=== PATIENT | male | born 1985 | race Caucasian/White ===

== ENCOUNTER 2017-05-16 16:21 | Inpatient (IN) | payer OTHER ==
[~2017-05-16] VITALS: Ht 180.3 cm; Wt 54.0 kg
[2017-05-16] MEDS ORDERED: ONDANSETRON 4 MG/2 ML VIAL IM PRN (21:45)
[2017-05-16] MEDS ORDERED: MIRALAX 17 GM POWD.PACK PO PRN (21:45)
[2017-05-16] MEDS ORDERED: diphenhydrAMINE 50 MG CAPSULE PO PRN (21:45)
[2017-05-16] MEDS ORDERED: THIAMINE HCL 200 MG/2 ML VIAL IM ONE (21:45)
[2017-05-16] MEDS ORDERED: LORAZEPAM 2 MG/1 ML VIAL IM PRN (21:45)
[2017-05-16] MEDS ORDERED: ACETAMINOPHEN 325 MG TABLET PO PRN (21:45)
[2017-05-16] MEDS ORDERED: LOPERAMIDE HCL 2 MG CAPSULE PO PRN ×2 (21:45)
[2017-05-16] MEDS ORDERED: ONDANSETRON ODT 4 MG TAB.RAPDIS SL PRN (21:45)
[2017-05-16] MEDS ORDERED: HYDROXYZINE PAMOATE 25 MG CAPSULE PO PRN (21:45)
[2017-05-16] MEDS ORDERED: DICYCLOMINE HCL 20 MG TABLET PO PRN (21:45)
[2017-05-16] MEDS ORDERED: MAG HYDROX/AL HYDROX/SIMETH 30 ML LIQUID UDC PO PRN (21:45)
[2017-05-16] MEDS ORDERED: LORAZEPAM 1 MG TABLET PO PRN ×2 (21:45)
[2017-05-16] MEDS ORDERED: IBUPROFEN 400 MG TABLET PO PRN (21:45)
[2017-05-16] MEDS ORDERED: CLONIDINE HCL 0.1 MG TABLET PO PRN (21:45)
[2017-05-16 22:00] VITALS: BP 110/71
--- NOTE | 2017-05-16 22:01 | NUR ---
ADMISSION NOTE: Patient is a 31 year old male admitted to [facility] on 05-16-17 for ETOH and BENZO detox as well as METHAMPHETAMINE, GHB, alkyl nitrites, and marijuana abuse/dependence. Patient has arrived on unit at 2201 ambulatory, alert and oriented x 4, and able to make needs known. Patient is 5'11, 119 lbs. he has NKA. He is a full code and on a regular diet. He denies seizure history. Medical history includes HIV diagnosed in 2007, currently taking Genvoya 1 tab daily. Last taken today. Patient also occasionally uses Flonase prn for seasonal allergies. Patient has past psych history of generalized anxiety and depression. Denies current psychiatrist or psychiatric medications. Denies SI or HI. Patient provided urine for toxicology. Positive for benzodiazepines, and amphetamines. SUBSTANCE ABUSE HISTORY: 1.Methamphetamine 1/2 gram daily in multiple doses. Patient last used approximately 5 hours prior to admission. Has been using at this rate for last 4 months. Route of use is both inhalation and injecting. First use age 17. 2. GHB. Using approximately 2 1/2 ml PO every 2 hours when using methamphetamine. Last used approximately 5 hours ago. 3. Xanax. Using approximately 3 grams weekly approximately 1/2 "bar" every 2 days (states helps with coming down from Meth). First used at age 23. Last used approxiamtely 2 days ago. 4. ETOH- Using approximately 3-5 times weekly. 32-64 ounces. Mixed drinks and beer. Last used approximately 2 days ago. 5 Marijuana 1 "bowl" approximately twice weekly last used approximately 3-4 days ago. Patient is a Non Smoker. Treatment history includes multiple attempts at [facility] before 2013. Inpatient 60 days at [facility] in [place] in 2013. Patient has a Primary care physician Dr Olvin Rojas at [facility]. Orientation to unit provided. Body search completed. No contraband found. Skin check completed. No noted skin breakdown. Upon admission vital signs BP 110/71, P 77, R 16, SPO2 98% on RA, T 97.9. CIWA 5. Safety measures in place, bed locked and in lowest position, side rails up x 2 for safety. Call light within reach. Will continue to monitor
[2017-05-16 22:14] LABS: BASOPHILS # (AUTO) 0.1 K/uL (0.0-8.0); BASOPHILS % (AUTO) 0.7 % (0.0-2.0); EOSINOPHILS # (AUTO) 0.1 K/uL (0.0-0.7); HEMATOCRIT 42.2 % (40-50); HEMOGLOBIN 13.7 G/DL (14.0-18.0); LYMPHOCYTES # (AUTO) 1.7 K/UL (0.8-4.8); LYMPHOCYTES % (AUTO) 21.2 % (20.5-51.5); MEAN CORPUSCULAR HEMOGLOBIN 30.6 UUG (27.0-31.0); MEAN CORPUSCULAR HGB CONC 33 g/dL (32.0-37.0); MEAN CORPUSCULAR VOLUME 94.4 FL (82.0-92.0); MONOCYTES % (AUTO) 12.5 % (0.0-11.0); NEUTROPHILS # (AUTO) 5.2 K/UL (1.8-8.9); NEUTROPHILS % (AUTO) 64.6 % (38.5-71.5); PLATELET COUNT (AUTO) 225 K/UL (150-450); RED BLOOD CELL COUNT(AUTO) 4.47 MIL/UL (4.7-6.1); WHITE BLOOD COUNT (AUTO) 8.1 K/UL (4.0-11.2)
[2017-05-16 22:24] LABS: ALANINE AMINOTRANSFERASE 25 U/L (16-63); ALKALINE PHOSPHATASE 83 U/L (50-136); ASPARTATE AMINOTRANSFERASE 21 U/L (15-37); BILIRUBIN,TOTAL 0.6 mg/dL (0.2-1.0); CARBON DIOXIDE 32 mmol/L (21-32); CHLORIDE 108 mmol/L (98-107); CREATININE 1.3 mg/dL (0.6-1.3); GLUCOSE 111 mg/dL (74-106); MAGNESIUM 2.4 mg/dL (1.8-2.4); POTASSIUM 3.9 mmol/L (3.5-5.1); TOTAL PROTEIN, SERUM 8.7 g/dL (6.4-8.2); UREA NITROGEN, BLOOD 10 mg/dL (7-18)
[2017-05-16 22:26] LABS: ETHANOL < 3 MG/DL (0-0)
[2017-05-16 22:28] LABS: *AMPHETAMINE, URINE POSITIVE (NEGATIVE); *BARBITURATE, URINE NEGATIVE (NEGATIVE); *CANNABINOID, URINE NEGATIVE (NEGATIVE); *COCCAINE, URINE NEGATIVE (NEGATIVE); *OPIATE, URINE NEGATIVE (NEGATIVE); *PHENCYCLIDINE SCREEN,URINE NEGATIVE (NEGATIVE)
[2017-05-16] MEDS ORDERED: LORAZEPAM 1 MG TABLET PO ONE (22:30)
[2017-05-16] MEDS ORDERED: QUETIAPINE FUMARATE 25 MG TABLET PO PRN (22:45)
--- NOTE | 2017-05-16 23:26 | NUR ---
ONE TIME DOSE ATIVAN One time dose of Ativan 2 mg PO ordered for anxiety/insomnia. Administered to patient at 2326. Effect pending.
[2017-05-16] MEDS ORDERED: THIAMINE HCL 200 MG/2 ML VIAL ONE (23:28)
[2017-05-16] MEDS ORDERED: LORAZEPAM 1 MG TABLET ONE (23:29)
--- NOTE | 2017-05-17 00:26 | NUR ---
Reassessment of patient Patient reassessed one hour after one time dosse of Ativan 2mg administered. PAtient resting comfortably in bed with eyes closed. Breathing even and unlabored.
[2017-05-17] MEDS ORDERED: ELVI1TAB3 PO (01:06)
[2017-05-17] MEDS ORDERED: FLUT9.9S NS (03:18)
[2017-05-17 04:00] VITALS: BP 104/68
--- NOTE | 2017-05-17 06:54 | NUR ---
END OF SHIFT Endorsement to AM nurse. Patient is a 31 year old male admitted to [facility] on 05-16-17 for ETOH, BENZO, METHAMPHETAMINE, GHB, alkyl nitrites, and marijuana. Patient has arrived on unit at 2201 ambulatory, alert and oriented x 4, and able to make needs known. Patient is 5'11, 119 lbs. he has NKA. He is a full code and on a regular diet. He denies seizure history. Medical history includes HIV diagnosed in 2007, currently taking Genvoya 1 tab daily. Last took today. Patient also occasionally uses Flonase prn for seasonal allergies. Patient has past psych history of generalized anxiety and depression. Denies current psychiatrist or psychiatric meds. Denies SI or HI. Patient provided urine for toxicology. Positive for benzodiazepines, and amphetamines. Patient is a Non Smoker. Treatment history includes multiple attempts at [facility] before 2013. Inpatient 60 days at [facility] in [place] in 2013. Patient has a Primary care physician Dr Olvin Rojas at [facility]. Orientation to unit provided. Body search completed. No contraband found. Skin check completed. No noted skin breakdown. Upon admission vital signs BP 110/71, P 77, R 16, SPO2 98% on RA, T 97.9. CIWA 5. HE received a one time Ativan dose of 2 mg PO at 2326. Vital signs at 0400 BP 104/68,P 82, R 16, SPO2 100% RA, T 97.9 . CIWA 2. Intake 890 Ml, output 1 void, slept 4 hours. Safety measures in place, bed locked and in lowest position, side rails up x 2 for safety. Call light within reach. Will continue to monitor
--- NOTE | 2017-05-17 07:23 | NUR ---
START OF SHIFT NOTE: Received report from night time nanny nurse. Patient is a 31 year old male admitted to [facility] on 05-16-17 for ETOH, BENZO , METHAMPHETAMINE, GHB, alkyl nitrites, and marijuana abuse/dependence. Pt currently on prn's only. Pt is alert and oriented X4. Color good, skin warm and dry. Respirations even and unlabored. Pt resting in bed. Safety precautions observed. Call light within reach. Will continue to monitor.
[2017-05-17 08:06] VITALS: BP 106/72
[2017-05-17] MEDS ORDERED: TUBERCULIN,PURIF.PROT.DERIV. 5 TU/0.1 ML TEST ID ONE (09:00)
[2017-05-17] MEDS ORDERED: GABAPENTIN 300 MG CAPSULE PO SCH (09:00)
[2017-05-17] MEDS: THIAMINE HCL 100 MG TABLET PO SCH (09:11)
[2017-05-17] MEDS: FOLIC ACID 1 MG TABLET PO SCH (09:12)
[2017-05-17] MEDS: MULTIVITAMINS,THERAPEUTIC TABLET PO SCH (09:12)
--- NOTE | 2017-05-17 09:22 | NUR ---
VSS CIWA 6 c/o upper extremity tremors and anxiety. Pt states "very tired." TB test administered LFA
[2017-05-17] MEDS ORDERED: FLONASE NASAL SPRAY NS PRN (11:30)
[2017-05-17] MEDS ORDERED: LORAZEPAM 1 MG TABLET PO PRN ×2 (12:15)
--- NOTE | 2017-05-17 12:25 | NUR ---
Therapist prompted client to attend daily group therapy, and client stated that he would attend if he was feeling well.
[2017-05-17] MEDS: GENVOYA PO SCH (12:32)
[2017-05-17 12:44] VITALS: BP 100/63
[2017-05-17] MEDS: GABAPENTIN 300 MG CAPSULE PO SCH ×2 (13:56→20:41)
--- NOTE | 2017-05-17 16:27 | NUR ---
VSS CIWA 8 Ativan 1mg po prn administered
[2017-05-17 17:02] VITALS: BP 100/63
--- NOTE | 2017-05-17 17:09 | NUR ---
Pt feels much improved after Ativan prn. CIWA 5
--- NOTE | 2017-05-17 18:39 | NUR ---
END OF SHIFT NOTE: Report given to lieutenant shift supervisor nurse . Patient is a 31 year old male admitted to [facility] on 05-16-17 for ETOH, BENZO , METHAMPHETAMINE, GHB, alkyl nitrites, and marijuana abuse/dependence. Pt currently on prn's only. Pt is alert and oriented X4. Color good, skin warm and dry. Last CIWA 8 @ 1500. Ativan 1mg po prn administered @ 1630. Respirations even and unlabored. Vital signs have remained stable throughout shift. Pt resting in bed. Safety precautions observed. Call light within reach
--- NOTE | 2017-05-17 19:15 | NUR ---
START OF SHIFT Endorsement received from AM shift. Patient is a 31 year old male admitted to [facility] on 05-16-17 for ETOH, BENZO, METHAMPHETAMINE, GHB, alkyl nitrites, and marijuana. Patient is alert and oriented x 4, and able to make needs known. he has NKA. He is a full code and on a regular diet. He denies seizure history. Medical history includes HIV diagnosed in 2007, currently taking Genvoya 1 tab daily. Patient has past psych history of generalized anxiety and depression. Denies SI or HI. Patient is a Non Smoker. He is currently on an Ativan PRN for S/S of withdrawal. He received one dose on AM shift. His last CIWA 8. At change of shift patient is in bed with eyes closed. Arousable to name. PAtient denies current problems, feels tired. Ate 100 % of his dinner. Safety measures in place, bed locked and in lowest position, side rails up x 2 for safety. Call light within reach. Will continue to monitor
[2017-05-17 20:00] VITALS: BP 100/66
[2017-05-17] MEDS ORDERED: QUETIAPINE FUMARATE 25 MG TABLET PO PRN (21:00)
--- NOTE | 2017-05-18 | NUR ---
CIWA DEFERRED/VITAL SIGNS REFUSED Patient refused vital signs at 0000. Patient resting comfortably in bed. Eyes closed. Breathing even and unlabored. Respirations 16. CIWA deferred for sleep
--- NOTE | 2017-05-18 04:07 | NUR ---
CIWA DEFERRED/VITAL SIGNS REFUSED Patient refused vital signs at 0400. Patient resting comfortably in bed. Eyes closed. Breathing even and unlabored. Respirations 16. CIWA deferred for sleep
--- NOTE | 2017-05-18 06:45 | NUR ---
END OF SHIFT REPORT. Endorsement to AM nurse. Patient is a 31 year old male admitted on 05/16/17 for Alcohol and benzo detox. Patient also with abuse of Methamphetamines, GHB,and alkyl nitrites. Medical history includes: HIV, Generalized anxiety Disorder, and depression. History of one seizure noted in December 2016. Patient remains on Atvan PRN for withdrawal symptoms. Last CIWA 4. Patient did not receive any PRN medications on PM shift. Patient alert and oriented x 4, isolative in room, sleeping intermittently throughout shift with no complaints Patient brought to my attention small scab to inner right thigh. No open area , scab less than one centimeter in diameter. He denies SI or HI, waxes and wanes regarding decision to come into detox on a Holiday weekend, but continues to recognize the seriousness of addiction. Patient is receptive to education. Tolerating diet and fluids. Non smoiker. Intake 350 ML Output 1 VOID Slept a total of 10 hours. Safety measures in place, bed locked in lowest positions, 2 side rails up, call light within reach. Full code, on a regular diet, with NKA. Will continue to monitor.
--- NOTE | 2017-05-18 07:29 | NUR ---
START OF SHIFT NOTE: Received report from production shift supervisor nurse. Patient is a 31 year old male admitted to [facility] on 05-16-17 for ETOH, BENZO , METHAMPHETAMINE, GHB, alkyl nitrites, and marijuana abuse/dependence. Pt currently on prn's only. Pt is alert and oriented X4. Color good, skin warm and dry. Respirations even and unlabored. Pt resting in bed. Safety precautions observed. Call light within reach. Will continue to monitor.
[2017-05-18 08:31] VITALS: BP 108/62
[2017-05-18 09:08] LABS: *BASOS 1 % (.); *BASOS,ABSOLUTE 0.1 x10E3/uL (0.0-0.2); *COMMENTS Note: (.); *EOS 3 % (.); *EOS ABSOLUTE 0.2 x10E3/uL (0.0-0.4); *HCT 42.5 % (37.5-51.0); *HGB 13.5 g/dL (12.6-17.7); *LYMPHOCYTES 40 % (.); *LYMPHOCYTES ABSOLUTE 3.2 x10E3/uL (0.7-3.1); *MCHC 31.8 g/dL (31.5-35.7); *MCV 98 fL (79-97); *MONOCYTES 9 % (.); *MONOCYTES ABSOLUTE 0.7 x10E3/uL (0.1-0.9); *NEUTROPHILS 47 % (.); *NEUTROPHILS ABSOLUTE 3.8 x10E3/uL (1.4-7.0); *PLT 243 x10E3/uL (150-379); *RBC 4.35 x10E6/uL (4.14-5.80); *RDW 14.3 % (12.3-15.4)
[2017-05-18] MEDS: MULTIVITAMINS,THERAPEUTIC TABLET PO SCH (09:38)
[2017-05-18] MEDS: GENVOYA PO SCH (09:38)
[2017-05-18] MEDS: GABAPENTIN 300 MG CAPSULE PO SCH ×3 (09:38→20:43)
[2017-05-18] MEDS: FOLIC ACID 1 MG TABLET PO SCH (09:38)
[2017-05-18] MEDS: THIAMINE HCL 100 MG TABLET PO SCH (09:38)
[2017-05-18 11:07] LABS: HEPATITIS B SURFACE AG Negative (Negative)
[2017-05-18 12:22] VITALS: BP 109/72
[2017-05-18] MEDS ORDERED: IBUP-1953 PO (14:38)
[2017-05-18] MEDS ORDERED: GABA-534 PO (14:38)
[2017-05-18] MEDS ORDERED: HYDR-3895 PO (14:38)
[2017-05-18 17:26] VITALS: BP 109/72
--- NOTE | 2017-05-18 18:39 | NUR ---
END OF SHIFT NOTE: Report given to maintenance technician 2nd shift nurse . Patient is a 31 year old male admitted to [facility] on 05-16-17 for ETOH, BENZO , METHAMPHETAMINE, GHB, alkyl nitrites, and marijuana abuse/dependence. Pt currently on prn's only. No prn's administered. Pt is alert and oriented X4. Color good, skin warm and dry. Last CIWA 6 @ 1500. Respirations even and unlabored. Vital signs have remained stable throughout shift. Pt resting in bed. Safety precautions observed. Call light within reach.
--- NOTE | 2017-05-18 19:30 | NUR ---
START OF SHIFT Patient is a 31 year old male admitted for Etoh, Benzo , Methamphetamine, GHB, alkyl nitrites, and marijuana abuse/dependency. Pt currently on PRN medications only. No PRN meds given during day shift. Pt is alert and oriented X4, skin warm and dry. Last CIWA 6 @ 1500. Respirations even and unlabored. Vital signs have remained stable throughout day shift. All safety precautions observed per hospital policy, Call light within reach,will continue to monitor.
[2017-05-18 20:00] VITALS: BP 119/78
[2017-05-19] VITALS: BP 102/65
--- NOTE | 2017-05-19 04:00 | NUR ---
V/S REFUSED.CIWA DEFERRED PT IN DEEP SLEEP.HE HAD REQUESTED NOT TO BE WOKEN UP FOR 0400 V/S.CIWA DEFERRED DUE TO BEING ASLEEP.NO S/S OF DISTRESS NOTED.WILL CONTINUE TO MONITOR.
--- NOTE | 2017-05-19 06:42 | NUR ---
END OF SHIFT Patient is a 31 year old male admitted for Etoh, Benzo , Methamphetamine, GHB, alkyl nitrites, and marijuana abuse/dependency. Pt currently on PRN medications only. No PRN meds given last night. Pt slept 7.5 hrs,fuid intake was 1000 mls, voided x 1.Pt is scheduled to be discharged this morning. Pt is alert and oriented X4, skin warm and dry. Last CIWA was 1 @ midnight. Respirations even and unlabored. Vital signs have remained stable. All safety precautions observed per hospital policy, Call light within reach,will continue to monitor.
--- NOTE | 2017-05-19 07:05 | NUR ---
start of shift note: received pt from biological photographer nurse, pt is in stable condition at this time, no s/s of pain or discomfort. pt is [facility] for Meth/benzo/etoh withdrawal/dependence. pt's last ciwa 1,pt slept for 7 hrs. will assist pt in discharging and will continue to monitor pt for any changes.
[2017-05-19] MEDS: GENVOYA PO SCH (08:42)
[2017-05-19] MEDS: FOLIC ACID 1 MG TABLET PO SCH (08:42)
[2017-05-19] MEDS: THIAMINE HCL 100 MG TABLET PO SCH (08:42)
[2017-05-19] MEDS: GABAPENTIN 300 MG CAPSULE PO SCH (08:42)
[2017-05-19] MEDS: MULTIVITAMINS,THERAPEUTIC TABLET PO SCH (08:42)
--- NOTE | 2017-05-19 09:29 | NUR ---
discharge note: pt left the unit in stable condition no s/s of pain or discomfort or any withdrawal symptoms. pt teaching administered and pt verbalized understanding . pt's personal belongings were returned. [facility] via private catering truck driver/car.
== END 2017-05-19 09:29 | disposition other institution (70) | DRG 895 ==
LOC: SRC 20:42
PROVIDERS: ADMIT Internal Medicine; ATTEND Internal Medicine
PROC: HZ2ZZZZ Detoxification Services for Substance Abuse Treatment (ICD-10-PCS; principal; 2017-05-16)
PROC: HZ31ZZZ Individual Counseling for Substance Abuse Treatment, Behavioral (ICD-10-PCS; 2017-05-17)
DX: F10.230 Alcohol dependence with withdrawal, uncomplicated (principal); F13.239 Sedative, hypnotic or anxiolytic dependence with withdrawal, unspecified; F32.9 Major depressive disorder, single episode, unspecified; Y90.9 Presence of alcohol in blood, level not specified; F41.1 Generalized anxiety disorder; Z80.0 Family history of malignant neoplasm of digestive organs; Z81.8 Family history of other mental and behavioral disorders; F12.90 Cannabis use, unspecified, uncomplicated; D53.9 Nutritional anemia, unspecified; F14.10 Cocaine abuse, uncomplicated; R73.9 Hyperglycemia, unspecified
CPT/HCPCS: 36415; 80307; 80324; 80346; 83735; 85025; 86361; 86580; 86592; 86705; 86803; 87340; 87806; G0480; J3411

== ENCOUNTER 2018-01-12 10:09 | Inpatient (IN) | payer OTHER ==
[~2018-01-12] VITALS: Ht 180.3 cm; Wt 63.5 kg
[~2018-01-12 10:09] MED LIST: ELVI1TAB3 PO; FLUT9.9S NS; GABA-534 PO; HYDR-3895 PO; IBUP-1953 PO
[2018-01-12] MEDS ORDERED: ATOM100C PO (11:59)
[2018-01-12] MEDS ORDERED: ABAC1TAB15 PO (11:59)
[2018-01-12] MEDS ORDERED: ARIP5TAB10 PO (11:59)
[2018-01-12] MEDS ORDERED: BUPR-96 PO (11:59)
[2018-01-12] MEDS ORDERED: FLUO20CA36 PO (11:59)
[2018-01-12] MEDS ORDERED: CLOM50TA2 PO (11:59)
[2018-01-12 12:42] LABS: *AMPHETAMINE, URINE POSITIVE (NEGATIVE); *BARBITURATE, URINE NEGATIVE (NEGATIVE); *CANNABINOID, URINE NEGATIVE (NEGATIVE); *COCCAINE, URINE NEGATIVE (NEGATIVE); *OPIATE, URINE NEGATIVE (NEGATIVE); *PHENCYCLIDINE SCREEN,URINE NEGATIVE (NEGATIVE)
[2018-01-12] MEDS ORDERED: diphenhydrAMINE 50 MG CAPSULE PO PRN (12:45)
[2018-01-12] MEDS ORDERED: LOPERAMIDE HCL 2 MG CAPSULE PO PRN ×2 (12:45)
[2018-01-12] MEDS ORDERED: MAG HYDROX/AL HYDROX/SIMETH 30 ML LIQUID UDC PO PRN (12:45)
[2018-01-12] MEDS ORDERED: IBUPROFEN 400 MG TABLET PO PRN (12:45)
[2018-01-12] MEDS ORDERED: DICYCLOMINE HCL 20 MG TABLET PO PRN (12:45)
[2018-01-12] MEDS ORDERED: MAGNESIUM HYDROXIDE 30 ML LIQUID UDC PO PRN (12:45)
[2018-01-12] MEDS ORDERED: ACETAMINOPHEN 325 MG TABLET PO PRN (12:45)
[2018-01-12] MEDS ORDERED: FAMOTIDINE 20 MG TABLET PO PRN (12:45)
[2018-01-12] MEDS ORDERED: MIRALAX 17 GM POWD.PACK PO PRN (12:45)
[2018-01-12] MEDS ORDERED: CLONIDINE HCL 0.1 MG TABLET PO PRN (12:45)
[2018-01-12] MEDS ORDERED: HYDROXYZINE PAMOATE 25 MG CAPSULE PO PRN (12:45)
[2018-01-12] MEDS ORDERED: LORAZEPAM 2 MG/1 ML VIAL IM PRN (12:45)
[2018-01-12] MEDS ORDERED: LORAZEPAM 1 MG TABLET PO PRN ×2 (15:00)
[2018-01-12 16:00] VITALS: BP 105/62
[2018-01-12 20:00] VITALS: BP 96/58
[2018-01-12] MEDS ORDERED: ARIPIPRAZOLE 5 MG TABLET PO SCH (21:00)
[2018-01-12 21:59] LABS: BASOPHILS % (AUTO) 0.6 % (0.0-2.0); EOSINOPHILS # (AUTO) 0.2 K/uL (0.0-0.7); EOSINOPHILS % (AUTO) 1.9 % (0.0-7.0); HEMATOCRIT 41.4 % (36.7-47.1); LYMPHOCYTES # (AUTO) 2.1 K/uL (20.0-40.0); LYMPHOCYTES % (AUTO) 26.3 % (20.5-51.5); MEAN CORPUSCULAR HEMOGLOBIN 32.9 uug (23.8-33.4); MEAN CORPUSCULAR HGB CONC 34 g/dL (32.5-36.3); MEAN CORPUSCULAR VOLUME 97.2 fL (73.0-96.2); MONOCYTES # (AUTO) 1.1 K/uL (2.0-10.0); MONOCYTES % (AUTO) 13.9 % (0.0-11.0); NEUTROPHILS # (AUTO) 4.5 K/uL (1.8-8.9); NEUTROPHILS % (AUTO) 57.3 % (38.5-71.5); PLATELET COUNT (AUTO) 186 K/uL (152-348); RED BLOOD CELL COUNT(AUTO) 4.26 MIL/uL (4.06-5.63); WHITE BLOOD COUNT (AUTO) 7.9 K/uL (3.6-10.2)
[2018-01-12 22:22] LABS: ALANINE AMINOTRANSFERASE 25 U/L (16-63); ALKALINE PHOSPHATASE 69 U/L (50-136); ASPARTATE AMINOTRANSFERASE 16 U/L (15-37); BILIRUBIN,TOTAL 0.3 mg/dL (0.2-1.0); CARBON DIOXIDE 29 mmol/L (21-32); CHLORIDE 103 mmol/L (98-107); CREATININE 1.3 mg/dL (0.6-1.3); GLUCOSE 122 mg/dL (74-106); MAGNESIUM 1.9 mg/dL (1.8-2.4); POTASSIUM 4.3 mmol/L (3.5-5.1); TOTAL PROTEIN, SERUM 6.8 g/dL (6.4-8.2); UREA NITROGEN, BLOOD 18 mg/dL (7-18)
[2018-01-12 22:38] LABS: ETHANOL < 3 MG/DL (0-0)
[2018-01-13] VITALS: BP 102/58
[2018-01-13 04:00] VITALS: BP 108/65
[2018-01-13 08:00] VITALS: BP 112/69
[2018-01-13] MEDS ORDERED: buPROPion XL 150 MG TAB.SR.24H PO SCH (09:00)
[2018-01-13] MEDS ORDERED: TRIUMEQ TABLET PO SCH (09:00)
[2018-01-13] MEDS ORDERED: FLUOXETINE HCL 20 MG CAPSULE PO SCH ×2 (09:00)
[2018-01-13] MEDS ORDERED: FOLIC ACID 1 MG TABLET PO SCH (09:00)
[2018-01-13] MEDS ORDERED: TUBERCULIN,PURIF.PROT.DERIV. 5 TU/0.1 ML TEST ID ONE (09:00)
[2018-01-13 12:00] VITALS: BP_SYST 110; BP_SYST 112; BP_DIAS 69; BP_DIAS 70
[2018-01-14 08:06] LABS: HEPATITIS B SURFACE AG Negative (Negative)
== END 2018-01-13 14:30 | disposition home or self-care (01) | DRG 895 ==
LOC: SRC 11:26
PROVIDERS: ADMIT Internal Medicine; ATTEND Internal Medicine
PROC: HZ2ZZZZ Detoxification Services for Substance Abuse Treatment (ICD-10-PCS; principal; 2018-01-12)
PROC: HZ41ZZZ Group Counseling for Substance Abuse Treatment, Behavioral (ICD-10-PCS; 2018-01-13)
DX: F15.220 Other stimulant dependence with intoxication, uncomplicated (principal); F13.10 Sedative, hypnotic or anxiolytic abuse, uncomplicated; F41.1 Generalized anxiety disorder; F90.9 Attention-deficit hyperactivity disorder, unspecified type; Z79.899 Other long term (current) drug therapy; F32.9 Major depressive disorder, single episode, unspecified; Z81.8 Family history of other mental and behavioral disorders; Z80.0 Family history of malignant neoplasm of digestive organs
CPT/HCPCS: 36415; 70030-TC; 80307; 80324; 83735; 85025; 86580; 86592; 86705; 86803; 87340; 87806; G0480